=== PATIENT | female | born 1995 | race Two or more races ===

== ENCOUNTER 2021-02-19 23:58 | Inpatient (IN) | payer OTHER ==
[~2021-02-19 23:58] MED LIST: SPRINTEC 28 DA1 EACH PO
== END 2021-02-20 09:40 | disposition home or self-care (01) | DRG 743 ==
LOC: CIR.AMB 23:58 → O/R 23:59
PROVIDERS: ADMIT Obstetrics & Gynecology; ATTEND Obstetrics & Gynecology
PROC: 0UB14ZZ Excision of Left Ovary, Percutaneous Endoscopic Approach (ICD-10-PCS; principal; 2021-02-19 12:45)
DX: D27.1 Benign neoplasm of left ovary (principal)